=== PATIENT | female | born 1955 | race African-American/Black ===

== ENCOUNTER 2017-10-08 02:16 | Inpatient (IN) | payer OTHER ==
[2017-10-08] VITALS (9 sets, daily range): BP systolic 119–151; BP diastolic 57–73
[~2017-10-08] VITALS: Ht 165.1 cm; Wt 95.3 kg
[~2017-10-08 02:16] MED LIST: ACETAMINOPHEN325 M1 PO; ATORVASTATIN CA80 MG PO; DITROPAN XL5 MG PO; FUROSEMIDE40 MG PO; LEVAQUIN250 MG PO; LISINOPRIL-HCT1 EACH PO; MELOXICAM7.5 MG PO; POTASSIUM CHLO10 ME1 PO; POTASSIUM CHLO20 ME1 PO; POTASSIUM PO; TYLENOL PO; TYLENOL WITH C1 EACH PO; ULTRAM50 MG PO; VITAMIN B12 PO; VITAMIN D3 PO
[2017-10-08] MEDS ORDERED: CEFTRIAXONE SOD 1 GM VIAL IV ONE (02:30)
[2017-10-08] MEDS ORDERED: GENTAMICIN 80MG/NS 100 ML 100 ML IV ONE ×4 (02:30)
[2017-10-08] MEDS ORDERED: MORPHINE SULFATE 2 MG/ML SYR IV STA (02:32)
[2017-10-08] MEDS ORDERED: ONDANSETRON HCL INJ 2 MG/ML VIAL IV STA (02:32)
[2017-10-08] MEDS ORDERED: GENTAMICIN SULFATE 40 MG/ML 2 ML VIAL ONE (02:35)
[2017-10-08] MEDS ORDERED: SODIUM CHLORIDE 0.9% 250ML 250 ML ONE (02:36)
[2017-10-08] MEDS ORDERED: SODIUM CHLORIDE 0.9% 50ML 50 ML ONE (02:36)
[2017-10-08] MEDS ORDERED: MORPHINE SULFATE 2 MG/ML SYR ONE (02:39)
[2017-10-08] MEDS ORDERED: ONDANSETRON HCL INJ 2 MG/ML VIAL ONE ×2 (02:39→13:33)
[2017-10-08 02:44] LABS: BASOPHILS % 0.2 % (0.0-1.0); BILIRUBIN,URINE NEGATIVE (NEGATIVE); EOSINOPHILS % 0.1 % (0.0-6.0); HEMATOCRIT 42.6 % (34.2-44.1); HEMOGLOBIN 14.2 g/dL (12.0-16.0); KETONES,URINE NEGATIVE (NEGATIVE); LEUKOCYTE ESTERASE ,URINE 2+ (NEGATIVE); LYMPHOCYTES # (AUTO) 1.9 (1.0-3.2); LYMPHOCYTES % 9.1 % (18.0-39.1); MEAN CORPUSCULAR HEMOGLOBIN 30.7 pg (28-32); MEAN CORPUSCULAR HGB CONC 33.3 g/dL (31-35); MONOCYTES # (AUTO) 1.5 (0.2-0.8); MONOCYTES % 7.3 % (4.4-11.3); NEUTROPHILS # (AUTO) 17.3 (2.1-6.9); PLATELET COUNT 247 x10e3/uL (140-360); RED BLOOD COUNT 4.63 x10e6/uL (3.6-5.1); RED CELL DISTRIBUTION WIDTH 13.4 % (11.7-14.4); URINE UROBILINOGEN 0.2 mg/dL (0.2 - 1)
[2017-10-08 02:45] LABS: CLARITY,URINE CLOUDY (CLEAR); COLOR,URINE YELLOW (YELLOW); NITRITE,URINE POSITIVE (NEGATIVE); PROTEIN,URINE DIPSTICK 2+ (NEGATIVE)
[2017-10-08] MEDS ORDERED: ONDANSETRON HCL INJ 2 MG/ML VIAL IV PRN (02:45)
[2017-10-08] MEDS ORDERED: MORPHINE SULFATE 2 MG/ML SYR IV PRN (02:45)
[2017-10-08] MEDS ORDERED: SODIUM CHLORIDE 0.9% 500ML 500 ML ONE ×2 (02:45→14:32)
[2017-10-08] MEDS ORDERED: CEFTRIAXONE SOD 1 GM VIAL IV SCH (02:45)
[2017-10-08] MEDS: GENTAMICIN SULFATE 320 MG in SODIUM CHLORIDE 0.9% 100 ML IV SCH ×2 (02:51→11:06)
[2017-10-08 03:02] LABS: ALBUMIN 4.1 g/dL (3.5-5.0); ALBUMIN/GLOBULIN RATIO 1.1 (0.8-2.0); ANION GAP 16.4 mmol/L (8-16); CREATININE, SERUM 1.17 mg/dL (0.57-1.11); POTASSIUM 3.4 mmol/L (3.5-5.1)
[2017-10-08 03:05] LABS: WBC,URINE (MAN) >50 /HPF (0-5)
[2017-10-08 03:07] LABS: BACTERIA,URINE MODERATE /HPF; RBC,URINE 21-50 /HPF (0-5)
[2017-10-08 03:08] LABS: EPITHELIAL CELLS,URINE FEW /LPF
[2017-10-08 03:13] LABS: EOSINOPHILS % (MANUAL) 2 % (0-7); LYMPHOCYTES % (MANUAL) 13 % (19-48); MONOCYTES % (MANUAL) 5 % (3.4-9.0); NEUTROPHILS % (MANUAL) 80 % (40-74); PLATELET ESTIMATE ADEQUATE; PLATELET MORPHOLOGY COMMENT NORMAL; RBC MORPHOLOGY COMMENT NORMAL
[2017-10-08] MEDS ORDERED: ACETAMINOPHEN325 M1 PO (03:44)
[2017-10-08] MEDS ORDERED: LOSARTAN POTAS100 MG PO (03:44)
[2017-10-08] MEDS ORDERED: SIMETHICONE80 MG PO (03:44)
[2017-10-08] MEDS ORDERED: BELLADONNA/OPIUM 60 MG SUPP PR ONE (11:30)
[2017-10-08] MEDS ORDERED: IOPAMIDOL 610MG/1ML 300 MG/ML VIAL IV ONE (11:30)
[2017-10-08] MEDS ORDERED: MIDAZOLAM HCL 2 MG/2 ML VIAL ONE (13:21)
[2017-10-08] MEDS ORDERED: FENTANYL CITRATE/PF 100MCG/2 ML INJ ONE (13:21)
[2017-10-08] MEDS ORDERED: DEXAMETHASONE SOD PHOS INJ 4 MG/ML VIAL ONE (13:33)
[2017-10-08] MEDS ORDERED: PROPOFOL IV EMULSION 10 MG/ML 20 ML VIAL ONE (13:33)
[2017-10-08] MEDS ORDERED: SEVOFLURANE INHAL SOLN 250 ML PEN BTL ONE (13:33)
[2017-10-08] MEDS ORDERED: LIDOCAINE HCL 2% LOCAL INJ 5 ML SDV VIAL INJ ONE (13:33)
[2017-10-08] MEDS ORDERED: PHENYLEPHRINE HCL 1% 10 MG/ML VIAL ONE (13:33)
--- NOTE | 2017-10-08 14:02 | Operative Report ---
DATE OF PROCEDURE: October 08, 2017 PREOPERATIVE DIAGNOSES 1. Right hydronephrosis due to ureteropelvic junction obstruction. 2. Urinary tract infection. 3. Microscopic hematuria. POSTOPERATIVE DIAGNOSES 1. Right hydronephrosis due to ureteropelvic junction obstruction. 2. Urinary tract infection. 3. Microscopic hematuria. 4. Grade-2 cystocele. 5. Atrophic (senile) vaginitis. PROCEDURES PERFORMED 1. Cystourethroscopy with bilateral ureteral catheterization and retrograde ureteropyelography (separate procedure performed for the urinary tract infections and microscopic hematuria). 2. Interpretation of retrograde ureteropyelography. 3. Supervision of fluoroscopy. No radiologist present. 4. Cystourethroscopy with insertion of right indwelling ureteral stent (7 Latvian x 24 cm). 5. Pelvic examination under anesthesia. ANESTHESIA: General. COMPLICATIONS: None. CLINICAL SUMMARY: Please refer to consultation dictation from the same date. OPERATIVE PROCEDURE IN DETAIL: Informed consent was verified. Renetta Drew was properly identified, taken to the operating room, and placed on the cystoscopy table in the supine position. Anesthesia was uneventfully begun. The patient was then carefully and gently repositioned in the dorsal lithotomy position with all pressure points well padded. Her genitalia were prepared and draped in the usual sterile fashion. The 22.5-[place]vian cystourethroscope sheath with the obturator in place was atraumatically inserted into the patient's urethra, and the bladder was drained. Panendoscopy of the urinary bladder revealed signs of acute and active cystitis. Purulent urine was obtained upon placement of the cystoscope sheath, and this was sent for culture and sensitivity as a separate specimen. An open-ended ureteral catheter was used to cannulate the left ureter, and retrograde ureteropyelogram was performed. It was then inserted in the right ureter, and retrograde ureteropyelogram was performed. The open-ended catheter was then negotiated with the aid of a guidewire up into the right renal pelvis. A hydronephrotic drip of alethea thick pus was obtained. This pus was sent for culture and sensitivity and labeled as right kidney urine culture. With cystoscopic and fluoroscopic guidance, a 7-Latvian x 24-cm indwelling ureteral stent was then placed. It was coiled in the patient's kidney as well as in the patient's bladder. The retaining suture was cut short. The patient's bladder was then drained with a 20-Latvian Burks catheter. Pelvic examination under anesthesia revealed atrophic vaginitis with a grade-2 cystocele. No rectocele was noted. There were no abnormal palpable pelvic masses that could be appreciated. The cystocele was in the cephalad portion of the vagina, and there was good support of the urethra and bladder neck. The patient was then uneventfully reversed from anesthesia and taken to the recovery room in stable condition. There were no complications to the procedure. She tolerated the procedure well. Plans will be to continue her broad-spectrum antibiotic and eagerly await the culture and sensitivities so that we may discharge the patient on culture-specific antibiotics for several weeks prior to returning her to the operating room for a right ureteroscopy with management of her stone and removal of her stent. Job#: [id number]
--- NOTE | 2017-10-08 14:20 | Consultation ---
DATE OF CONSULTATION: October 08, 2017 UROLOGY CONSULTATION REASON FOR CONSULTATION: Hydronephrosis. HISTORY OF PRESENT ILLNESS: Renetta Drew is a 61-year-old woman with a known long-standing right ureteropelvic junction obstruction. The patient has been monitored and followed closely. Her last renal scan demonstrated a post-Lasix half-life in the normal range at 8 minutes on the right-hand side. Of her total kidney function, 41% is attributed to the right kidney and 59% is attributed to the left kidney. The patient has been offered the option of a pyeloplasty. However, without obstructing parameters on renal scan, the patient elected to proceed with continued followup as we have been doing. The patient has not had significant problems with complicated urinary tract infections. However, yesterday she had a fever [facility] where she had a white blood cell count of 22,000 and was found to have severe hydronephrosis on the right-hand side and a small stone in the right kidney measuring 3 mm. The patient also had malaise. The patient wanted to save the money of the transfer; so, she left against medical advice, brought her data with her to the hospital here, reported to the emergency room, where she was evaluated and admitted. The patient was given a 320-mg dose of IV gentamicin once and was placed on Rocephin. A catheterized urine culture was obtained at my request. PAST MEDICAL HISTORY/PAST SURGICAL HISTORY/SOCIAL HISTORY AND FAMILY HISTORY: Please refer to my voluminous office chart as well as prior hospital charts here. CURRENT MEDICATIONS: Please refer to the MAR. ALLERGIES: PENICILLIN. REVIEW OF SYSTEMS: As consistent with above history of present illness and past medical history, is otherwise negative for all other systems. PHYSICAL EXAMINATION GENERAL: A very pleasant 61-year-old woman lying in bed in no apparent distress. VITAL SIGNS: Her temperature maximum is 99.9, and her vital signs have been stable. ABDOMEN: Soft, nondistended. She has right-sided costovertebral angle tenderness. Kidneys are not palpable, without hepatosplenomegaly. No obvious evidence of hernia. The patient is obese. For the remaining physical examination and systems, please refer to the admission history and physical on the chart as well as the emergency room T Sheet. LABORATORY STUDIES: White blood cell count is 20,900, hemoglobin 14.2, platelets 247,000. Patient's creatinine is 1.17, which is patient's baseline. Her potassium is slightly low at 3.4. Her calcium is normal at 10. Urinalysis on catheterized urine was significant for nitrite positive urine with 4+ blood, 21-50 RBCs, greater than [address] with moderate bacteria. CT scan of the abdomen and pelvis from the outside had the findings mentioned above. ASSESSMENT 1. Known right ureteropelvic junction obstruction. 2. Urinary tract infection. 3. Atrophic right kidney. 4. Right nephrolithiasis. 5. Right renal colic. 6. Obesity. 7. Leukocytosis. 8. Right pyelonephritis. 9. Chronic renal insufficiency that is stable. 10. Mild hypokalemia. 11. Microscopic hematuria. PLAN: The patient has impending urosepsis. I will post the patient immediately to the operating room for an urgent cystoscopy, retrograde pyelograms and placement of a right stent. Once the patient has been cooled off from her infection, we will plan on returning her to the operating room to remove her stent, evaluate for stone, and hopefully render her stent-free and stone-free. The patient is aware of the risks, benefits and alternatives to stenting. She also knows about percutaneous nephrostomy as an option. Thank you very much for involving us in the care of your patient. We will be happy to follow her along with you as well as an outpatient. Job#: [id number]
[2017-10-08] MEDS: AZITHROMYCIN 500MG/NS 250 ML 250 ML IV SCH (14:45)
[2017-10-08] MEDS: PHENAZOPYRIDINE HCL 100 MG TAB PO SCH (17:55)
[2017-10-09] VITALS (7 sets, daily range): BP systolic 106–126; BP diastolic 55–61
[2017-10-09] MEDS: CEFTRIAXONE SOD 1 GM VIAL IV SCH (02:13)
[2017-10-09 07:18] LABS: BASOPHILS % 0.1 % (0.0-1.0); EOSINOPHILS % 0.1 % (0.0-6.0); HEMATOCRIT 37.1 % (34.2-44.1); HEMOGLOBIN 12.2 g/dL (12.0-16.0); LYMPHOCYTES % 12.4 % (18.0-39.1); MEAN CORPUSCULAR HEMOGLOBIN 30.6 pg (28-32); MEAN CORPUSCULAR HGB CONC 32.9 g/dL (31-35); MONOCYTES # (AUTO) 0.9 (0.2-0.8); MONOCYTES % 5.7 % (4.4-11.3); NEUTROPHILS # (AUTO) 13.1 (2.1-6.9); NEUTROPHILS % 81.3 % (38.7-80.0); PLATELET COUNT 193 x10e3/uL (140-360); RED BLOOD COUNT 3.99 x10e6/uL (3.6-5.1); RED CELL DISTRIBUTION WIDTH 13.3 % (11.7-14.4)
[2017-10-09 07:39] LABS: ALANINE AMINOTRANSFERASE 11 IU/L (0-55); ALBUMIN 2.9 g/dL (3.5-5.0); ALBUMIN/GLOBULIN RATIO 0.9 (0.8-2.0); ALKALINE PHOSPHATASE 82 IU/L (40-150); ANION GAP 11.2 mmol/L (8-16); BLOOD UREA NITROGEN 18 mg/dL (7-26); BUN/CREATININE RATIO 21 (6-25); CALCIUM 8.8 mg/dL (8.4-10.2); CARBON DIOXIDE 26 mmol/L (22-29); CHLORIDE 108 mmol/L (98-107); CREATININE, SERUM 0.86 mg/dL (0.57-1.11); EST GLOMERULAR FILTRATION RATE > 60 ML/MIN (60-); GLUCOSE 122 mg/dL (74-118); POTASSIUM 4.2 mmol/L (3.5-5.1); SODIUM 141 mmol/L (136-145)
[2017-10-09] MEDS: OXYBUTYNIN CHLORIDE 5 MG TAB PO SCH ×2 (09:56→18:06)
[2017-10-09] MEDS: PHENAZOPYRIDINE HCL 100 MG TAB PO SCH ×3 (09:56→18:06)
[2017-10-09] MEDS: AZITHROMYCIN 500MG/NS 250 ML 250 ML IV SCH (14:13)
[2017-10-10] VITALS: BP 111/56
[2017-10-10] MEDS: CEFTRIAXONE SOD 1 GM VIAL IV SCH (03:00)
[2017-10-10 04:00] VITALS: BP 106/56
[2017-10-10 08:00] VITALS: BP 121/64
[2017-10-10] MEDS: OXYBUTYNIN CHLORIDE 5 MG TAB PO SCH (09:16)
[2017-10-10] MEDS: PHENAZOPYRIDINE HCL 100 MG TAB PO SCH ×2 (09:16→13:33)
[2017-10-10 12:00] VITALS: BP 157/63
[2017-10-10] MEDS ORDERED: LEVAQUIN500 MG PO (13:04)
[2017-10-10] MEDS: AZITHROMYCIN 500MG/NS 250 ML 250 ML IV SCH (13:33)
== END 2017-10-10 14:33 | disposition home or self-care (01) | DRG 872 ==
LOC: ER 02:16 → ERHOLD 02:57 → MED/SURG3 02:58
PROC: BT1F1ZZ Fluoroscopy of Left Kidney, Ureter and Bladder using Low Osmolar Contrast (ICD-10-PCS; 2017-10-08)
PROC: BT1D1ZZ Fluoroscopy of Right Kidney, Ureter and Bladder using Low Osmolar Contrast (ICD-10-PCS; 2017-10-08)
PROC: 0T768DZ Dilation of Right Ureter with Intraluminal Device, Via Natural or Artificial Opening Endoscopic (ICD-10-PCS; principal; 2017-10-08 10:22)
DX: A41.9 Sepsis, unspecified organism (principal); N13.6 Pyonephrosis; N39.0 Urinary tract infection, site not specified; E66.9 Obesity, unspecified; I12.9 Hypertensive chronic kidney disease with stage 1 through stage 4 chronic kidney disease, or unspecified chronic kidney disease; N81.10 Cystocele, unspecified; N95.2 Postmenopausal atrophic vaginitis; N18.9 Chronic kidney disease, unspecified; N26.1 Atrophy of kidney (terminal); Z68.34 Body mass index [BMI] 34.0-34.9, adult; E87.6 Hypokalemia; R10.84 Generalized abdominal pain
CPT/HCPCS: 36415; 74420; 80053; 81001; 85025; 87040; 87086; 87186; 96367; 99284; C2617; J0456; J0696; J1100; J1580; J2001; J2250; J2270; J2370; J2405; J7040; J7050

== ENCOUNTER → 2017-11-19 | Day surgery (SDC) | payer OTHER ==
[2017-11-17 12:18] LABS: ANION GAP 11.3 mmol/L (8-16); CREATININE, SERUM 1.15 mg/dL (0.57-1.11); POTASSIUM 3.3 mmol/L (3.5-5.1)
[~2017-11-19] MED LIST changes: +BELLADONNA/OPIUM 60 MG SUPP PR ONE; +DEXAMETHASONE SOD PHOS INJ 4 MG/ML VIAL ONE; +FENTANYL CITRATE/PF 100MCG/2 ML INJ ONE; +GENTAMICIN 80MG/NS 100 ML 200 ML IV ONE; +HYDROCHLOROTHIA25 MG PO; +IOPAMIDOL 300MG/ML 50ML INFUS..BTL IV ONE; +LEVAQUIN500 MG PO; +LIDOCAINE HCL 2% LOCAL INJ 5 ML SDV VIAL INJ ONE; +LOSARTAN POTAS100 MG PO; +MIDAZOLAM HCL 2 MG/2 ML VIAL ONE; +ONDANSETRON HCL INJ 2 MG/ML VIAL ONE; +PROPOFOL IV EMULSION 10 MG/ML 20 ML VIAL ONE; +SEVOFLURANE INHAL SOLN 250 ML PEN BTL ONE; +SIMETHICONE80 MG PO
--- OUTSIDE RECORDS SUMMARY | 2017-11-19 05:17 | XMS REPORT | Continuity of Care Document ---
Author Author [facility] Organization [facility] Address [address] [place] [address] Phone Unavailable Care Team Providers Care Consulting Technical Director Name Role Phone NONSTAFF PCP Unavailable Insurance Providers Guarantor David Drew Address [address] [place] [address] Email [email or web address] Payer [employer] [place] [employer] Policy Number [id number] Subscriber's Name RajendraDavid Relationship 21 Unknown Group Name UNEMPLOYED Effective Date 17 Advance Directives Directive Response Recorded Date/Time Does the patient have an advance directive? No 10/08/17 4:46am If yes, is advance directive on file with [facility]? No 10/08/17 4:46am If not on file with [facility] will patient provide a copy? No 10/08/17 4:46am Do you have a Directive to Physician? No 10/08/17 2:51am Do you have a Medical Power of Structural Analyst? No 10/08/17 2:51am Do you have an out of hospital Do Not Resuscitate Order? No 10/08/17 2:51am Do you have any special needs we should be aware of? No 10/08/17 2:51am Do you have a support person here with you today? Yes 10/08/17 2:51am Did patient receive Notice of Privacy Practices? Yes 10/08/17 2:51am Did patient receive patient rights and responsibilities? Yes 10/08/17 2:51am Problems Medical Problem Onset Date Status Hydronephrosis Unknown Pyelonephritis Unknown UTI (urinary tract infection) 04/18/2016 Acute Ureteral obstruction 04/18/2016 Acute Medications Current Home Medications Medication Dose Units Route Directions Days Qty Instructions Start Date Acetaminophen 325 Mg Tablet 325 Mg Oral Every 6 Hours as needed for Pain And Temperature 7 Days Atorvastatin Calcium 80 Mg Tablet 80 Mg Oral Daily Furosemide 40 Mg Tablet 40 Mg Oral Daily as needed for Prn 30 Tab Levofloxacin (Levaquin) 500 Mg Tablet 500 Mg Oral Daily Lisinopril/Hydrochlorothiazide (Lisinopril-Hctz 20-12.5 Mg Tab) 1 Each Tablet Oral Daily Losartan Potassium 100 Mg Tablet 100 Mg Oral Daily Potassium Chloride 10 Meq Tab.er.prt 10 Meq Oral As Needed Simethicone 80 Mg Chew 80 Mg Oral Daily 30 Tab Tramadol Hcl (Ultram) 50 Mg Tablet 50 Mg Oral As Needed Past Home Medications Medication Directions Ordered Status Acetaminophen 325 Mg Tablet, 500 Mg Oral As Needed as needed for Pain Discontinued Acetaminophen With Codeine (Tylenol With Codeine #3 Tablet) 1 Each Tablet, 300 Mg Oral Every 4 Hours as needed for Pain Discontinued Levofloxacin (Levaquin) 250 Mg Tablet, 250 Mg Oral Daily Discontinued Meloxicam 7.5 Mg Tablet, 7.5 Mg Oral Daily Discontinued Oxybutynin Chloride (Ditropan Xl) 5 Mg Tab.er.24, 5 Mg Oral Three Times A Day Discontinued Potassium Chloride 20 Meq Tab.er.prt, 1 Meq Oral as needed for Daily Discontinued Vitamin B12 , Oral Daily Discontinued Vitamin D3 , Oral Daily Discontinued Family History Relationship Condition Age at Onset Recorded Date/Time 31 Mother Family history of acute myocardial infarction Not Recorded 2015 9:53am Social History Social History Problem Response Recorded Date/Time Onset Date Status Hx Psychiatric Problems No 10/08/2017 4:46am Not Applicable Not Applicable Hx Eating Disorder No 10/08/2017 4:46am Not Applicable Not Applicable Hx Substance Use Disorder No 10/08/2017 4:46am Not Applicable Not Applicable Hx Depression No 10/08/2017 4:46am Not Applicable Not Applicable Hx Alcohol Use No 10/08/2017 4:46am Not Applicable Not Applicable Hx Substance Use Treatment No 10/08/2017 4:46am Not Applicable Not Applicable Hx Physical Abuse No 10/08/2017 4:46am Not Applicable Not Applicable Smoking Status Start Date Stop Date Never Smoker Hospital Discharge Instructions No hospital discharge instruction information available. Plan of Care Discharge Date 10/10/17 2:33pm Disposition HOME, SELF-CARE Instructions/Education Provided Pyelonephritis Prescriptions See Medication Section Additional Instructions/Education NO HEAVY LIFTING OVER 10LBS, ACTIVITY TOLERATE. SCHAFFER CATHETER WITH LEG BAG AND OVERNIGHT BAG. FOLLOW UP WITH YOUR PRIMARY DOCTOR IN 1WK AND FOLLOW UP WITH DR Ulises MYERS IN 1WK [phone] Functional Status Query Response Date Recorded Assistive Devices None October 08, 2017 5:00am Ambulation Ability Independent October 08, 2017 5:00am Toileting Ability Independent October 10, 2017 9:00am Allergies, Adverse Reactions, Alerts Allergen Type Severity Reaction Status Last Updated Penicillin Allergy Unknown Active 01/31/16 Immunizations No immunization information available. Vital Signs Acute Vital Signs Vital Response Date/Time Temperature (Fahrenheit) 97.4 degrees F (97.6 - 99.5) 10/10/2017 12:00pm Pulse Pulse Rate (adult) 79 bpm (60 - 90) 10/10/2017 12:00pm Respiratory Rate 20 bpm (12 - 24) 10/10/2017 12:00pm Blood Pressure 157/63 mm Hg 10/10/2017 12:00pm Height 5 ft 5 in 10/08/2017 2:25am Weight 210 lb 10/08/2017 4:46am Body Mass Index 34.9 kg/m^2 10/08/2017 4:46am Results Laboratory Results Test Name Result Units Flags Reference Collection Date/Time Result Date/ Time Comments White Blood Count 16.15 x10e3/uL H 4.8-10.8 10/09/2017 6:32am 2017 7:28am Red Blood Count 3.99 x10e6/uL 3.6-5.1 10/09/2017 6:32am 10/09/2017 7: 28am Hemoglobin 12.2 g/dL 12.0-16.0 10/09/2017 6:3210/09/2017 7:28am Hematocrit 37.1 % 34.2-44.1 10/09/2017 6:32am 10/09/2017 7:28am Mean Corpuscular Volume 93.0 fL 81-99 10/09/2017 6:32am 10/09/2017 7: 28am Mean Corpuscular Hemoglobin 30.6 pg 28-32 10/09/2017 6:32am 10/09/2017 7:28am Mean Corpuscular Hemoglobin Concent 32.9 g/dL 31-35 10/09/2017 6:3210/09/2017 7:28am Red Cell Distribution Width 13.3 % 11.7-14.4 10/09/2017 6:322017 7:28am Platelet Count 193 x10e3/uL 140-360 10/09/2017 6:32am 10/09/2017 7: 28am Neutrophils (%) (Auto) 81.3 % H 38.7-80.0 10/09/2017 6:32am 10/09/2017 7 :28am Lymphocytes (%) (Auto) 12.4 % L 18.0-39.1 10/09/2017 6:32am 10/09/2017 7 :28am Monocytes (%) (Auto) 5.7 % 4.4-11.3 10/09/2017 6:32am 10/09/2017 7: 28am Eosinophils (%) (Auto) 0.1 % 0.0-6.0 10/09/2017 6:32am 10/09/2017 7: 28am Basophils (%) (Auto) 0.1 % 0.0-1.0 10/09/2017 6:32am 10/09/2017 7:28am IM GRANULOCYTES % 0.4 % 0.0-1.0 10/09/2017 6:32am 10/09/2017 7:28am Neutrophils # (Auto) 13.1 H 2.1-6.9 10/09/2017 6:32am 10/09/2017 7: 28am Lymphocytes # (Auto) 2.0 1.0-3.2 10/09/2017 6:32am 10/09/2017 7:28am Monocytes # (Auto) 0.9 H 0.2-0.8 10/09/2017 6:32am 10/09/2017 7:28am Eosinophils # (Auto) 0.0 0.0-0.4 10/09/2017 6:32am 10/09/2017 7:28am Basophils # (Auto) 0.0 0.0-0.1 10/09/2017 6:32am 10/09/2017 7:28am Absolute Immature Granulocyte (auto 0.07 x10e3/uL 0-0.1 10/09/2017 6: 32am 10/09/2017 7:28am Differential Total Cells Counted 100 10/08/2017 2:10/08/2017 3 :13am Neutrophils % (Manual) 80 % H 40-74 10/08/2017 2:10/08/2017 3:13am Lymphocytes % (Manual) 13 % L 19-48 10/08/2017 2:am 10/08/2017 3:13am Monocytes % (Manual) 5 % 3.4-9.0 10/08/2017 2:10/08/2017 3:13am Eosinophils % (Manual) 2 % 0-7 10/08/2017 2:10/08/2017 3:13am Platelet Estimate ADEQUATE 10/08/2017 2:10/08/2017 3:13am Platelet Morphology Comment NORMAL 10/08/2017 2:am 10/08/2017 3: 13am Red Cell Morphology Comment NORMAL 10/08/2017 2:am 10/08/2017 3: 13am Urine Color YELLOW YELLOW 10/08/2017 2:10/08/2017 2:45am Urine Clarity CLOUDY H CLEAR 10/08/2017 2:10/08/2017 2:45am Urine Specific [place] 1.020 1.010-1.025 10/08/2017 2:2017 2:45am Urine pH 6 5 - 7 10/08/2017 2:10/08/2017 2:45am Urine Leukocyte Esterase 2+ H NEGATIVE 10/08/2017 2:10/08/2017 2: 45am Urine Nitrite POSITIVE H NEGATIVE 10/08/2017 2:10/08/2017 2:45am Urine Protein 2+ H NEGATIVE 10/08/2017 2:10/08/2017 2:45am Urine Glucose (UA) NEGATIVE NEGATIVE 10/08/2017 2:10/08/2017 2: 45am Urine Ketones NEGATIVE NEGATIVE 10/08/2017 2:10/08/2017 2:45am Urine Urobilinogen 0.2 mg/dL 0.2 - 1 10/08/2017 2:10/08/2017 2: 45am Urine Bilirubin NEGATIVE NEGATIVE 10/08/2017 2:10/08/2017 2: 45am Urine Blood 4+ H NEGATIVE 10/08/2017 2:10/08/2017 2:45am Urine WBC >50 /HPF H 0-5 10/08/2017 2:10/08/2017 3:08am Urine RBC 21-50 /HPF H 0-5 10/08/2017 2:10/08/2017 3:08am Urine Bacteria MODERATE /HPF H NONE 10/08/2017 2:10/08/2017 3:08am Urine Epithelial Cells FEW /LPF NONE 10/08/2017 2:10/08/2017 3: 08am Sodium Level 141 mmol/L 136-145 10/09/2017 6:32am 10/09/2017 7:59am Potassium Level 4.2 mmol/L # 3.5-5.1 10/09/2017 6:32am 10/09/2017 7:59am Chloride Level 108 mmol/L H 98-107 10/09/2017 6:32am 10/09/2017 7:59am Carbon Dioxide Level 26 mmol/L 22-10/09/2017 6:32am 10/09/2017 7: 59am Anion Gap 11.2 mmol/L 8-16 10/09/2017 6:32am 10/09/2017 7:59am Blood Urea Nitrogen 18 mg/dL 7-10/09/2017 6:32am 10/09/2017 7:59am Creatinine 0.86 mg/dL 0.57-1.11 10/09/2017 6:32am 10/09/2017 7:59am BUN/Creatinine Ratio 21 6-10/09/2017 6:32am 10/09/2017 7:59am Estimat Glomerular Filtration Rate > 60 ML/MIN 60- 10/09/2017 6:32am 7:59am Ranges were taken from the National Kidney Disease Education Program and the National Kidney Foundation literature. Reference ranges: 60 or greater: Normal 16-59 (for 3 consecutive months): Chronic kidney disease 15 or less: Kidney failure Glucose Level 122 mg/dL H 74-118 10/09/2017 6:32am 10/09/2017 7:59am Calcium Level 8.8 mg/dL 8.4-10.2 10/09/2017 6:32am 10/09/2017 7:59am Total Bilirubin < 0.3 mg/dL 0.2-1.2 10/09/2017 6:32am 10/09/2017 7: 59am Aspartate Amino Transf (AST/SGOT) 10 IU/L 5-34 10/09/2017 6:32am 2017 7:59am Alanine Aminotransferase (ALT/SGPT) 11 IU/L 0-55 10/09/2017 6:32am 08/2017 7:59am Total Protein 6.0 g/dL # L 6.5-8.1 10/09/2017 6:32am 10/09/2017 7:59am Albumin 2.9 g/dL L 3.5-5.0 10/09/2017 6:32am 10/09/2017 7:59am Globulin 3.1 g/dL 2.3-3.5 10/09/2017 6:32am 10/09/2017 7:59am Albumin/Globulin Ratio 0.9 0.8-2.0 10/09/2017 6:32am 10/09/2017 7: 59am Alkaline Phosphatase 82 IU/L 40-150 10/09/2017 6:32am 10/09/2017 7: 59am Microbiology Results Procedure Source Organism/Result Collection Date/Time Result Date/Time Result Status Urine Culture Urine,Catheterized ESCHERICHIA COLI 10/08/2017 2:27am 2017 6:56am Final Blood Culture Blood NO GROWTH AFTER 48 HOURS 8:42am 10/10/2017 8:57am Preliminary Urine Culture Urine,Kidney ESCHERICHIA COLI 10/08/2017 12:53pm 10/10/2017 7:12am Final Procedures Procedure Status Date Provider(s) Cystoscopy with retrograde pyelography Completed 10/08/17 KATHLEEN MYERS MD Encounters Encounter Location Arrival/Admit Date Discharge/Depart Date Attending Provider [facility]mitted [facility] 10/08/17 2:57am WANDER WADSWORTH MD Registered Clinic [facility] 03/25/17 2:05pm KATHLEEN MYERS MD
--- NOTE | 2017-11-19 11:01 | Diagnostic Imaging Report ---
PROCEDURE:X-RAY ABDOMEN - KUB COMPARISON:KUB 05/10/2016 INDICATIONS:PRE-OP STONE FINDINGS: Right ureteral stent in place. Stool and bowel gas overlie the right renal silhouette. Previous calcifications projecting over the right kidney on 05/10/2016 are not well visualized. There are no calcifications projected over the expected course of the ureters or bladder. There is a non-obstructed bowel-gas pattern. There are no acute osseous abnormalities. CONCLUSION: Previous right renal calcifications noted on KUB 05/10/2016 are not well visualized. Of note, exam is partially limited by stool overlying the right renal silhouette. Dictated by: Norm Alonzo M.D. on 11/19/2017 at 11:02 Electronically approved by: Norm Alonzo M.D. on 11/19/2017 at 11:02
--- NOTE | 2017-12-16 03:12 | Operative Report ---
DATE OF PROCEDURE: November 19, 2017 PREOPERATIVE DIAGNOSES 1. Right nephrolithiasis. 2. Right indwelling ureteral stents. POSTOPERATIVE DIAGNOSES 1. Nephrolithiasis. 2. Foreign body (right indwelling ureteral stent.). 3. Cystocele. 4. Rectocele. 5. Grade-2 uterine prolapse. 6. Atrophic (senile) vaginitis. OPERATIONS PERFORMED 1. Cystourethroscopy with complicated removal of right indwelling ureteral stent (separately performed with separate scope for the diagnosis of stent). 2. Right ureteropyelography with stone manipulation and extraction (separately performed for nephrolithiasis done with a separate scope). 3. Radiological services for supervision and interpretation of ureteroscopy. 4. Interpretation of retrograde ureteropyelography. 5. Supervision of fluoroscopy. No radiologist present. 6. Pelvic examination under anesthesia. ANESTHESIA: General. COMPLICATIONS: None. CLINICAL SUMMARY: Renetta Drew is a 62-year-old woman with a right ureteropelvic junction obstruction. She has chronic right hydronephrosis. The patient developed right nephrolithiasis with pyelonephritis. Underwent ureteral stenting. She was brought to the operating room today for the above procedures. She is aware of the risks of bleeding, infection, injury to adjacent structures, need for additional procedure, and elected to proceed. OPERATIVE PROCEDURE IN DETAIL: Informed consent was verified. Renetta Drew was properly identified, taken to operating room, placed on the cystoscopy table in supine position. Anesthesia was uneventfully begun. The patient then carefully and gently repositioned in the dorsal lithotomy position with all pressure points well padded. Her genitalia were prepared and draped in usual sterile fashion. A 22.5-Citizen [place] cystoscope sheath with obturator in place was atraumatically inserted in patient's urethra and bladder was drained. Panendoscopy of the bladder revealed no suspicious mucosal lesions. No tumors, no stones, and no diverticula. There was a stent emerging from the right ureteral orifice and it was significantly encrusted. A guidewire was then placed alongside the stent and guided below the patient's kidney. The stent was then grasped completely, removed, then discarded. Flexible urethroscope was then brought up over the guidewire and guided to level of patient's kidney. The ureteropelvic junction appeared somewhat narrowed, but this area proved to allow the acceptable passage of urine at an acceptable rate. Alvaro plaques were present throughout the papilla of this dilated collecting system. We identified the stone. The stone was grasped with Nitinol tipless basket and extracted atraumatically, carefully examining the ureter, which was otherwise unremarkable. Interpretation of retrograde ureteropyelography: Contrast was instilled in retrograde fashion via the ureteroscope. There was chronic-appearing hydroureteronephrosis with an unremarkable ureter. This was consistent with a partial ureteropelvic junction obstruction, which has been stable in this patient for quite some time. There was no extravasation. The patient's bladder was then drained. Cystoscope was withdrawn. Pelvic examination under anesthesia revealed a cystocele, no rectocele, grade-2 uterine prolapse. There was atrophic (senile) vaginitis. No abnormal palpable pelvic masses could be appreciated. There were no obvious mucosal lesions. The patient was then uneventfully reversed from anesthesia and taken to recovery room in stable condition. Explicit postoperative instructions were given. Will follow the patient up in the office. Long-term followup will include the incorporation of nuclear medicine renal scan, as well as ongoing urological followup. Job#: [id number] CQ
== END | disposition home or self-care (01) ==
LOC: OR 05:15
PROVIDERS: ATTEND Urology
DX: N20.0 Calculus of kidney (principal); N13.30 Unspecified hydronephrosis; Z46.6 Encounter for fitting and adjustment of urinary device; N28.89 Other specified disorders of kidney and ureter; N81.2 Incomplete uterovaginal prolapse; N95.2 Postmenopausal atrophic vaginitis; I10 Essential (primary) hypertension; Z01.810 Encounter for preprocedural cardiovascular examination; Z01.812 Encounter for preprocedural laboratory examination; Z88.1 Allergy status to other antibiotic agents; Z88.0 Allergy status to penicillin
CPT/HCPCS: 36415; 52352; 74018; 74420; 80048; 87086; 88300; 93005; J1100; J1580; J2001; J2250; J2405; Q9967

== ENCOUNTER → 2017-12-31 | Outpatient (CLI) | payer OTHER ==
[~2017-12-31] MED LIST changes: -BELLADONNA/OPIUM 60 MG SUPP PR ONE; -DEXAMETHASONE SOD PHOS INJ 4 MG/ML VIAL ONE; -FENTANYL CITRATE/PF 100MCG/2 ML INJ ONE; +FUROSEMIDE INJ 10 MG/ML 4 ML VIAL ONE; -GENTAMICIN 80MG/NS 100 ML 200 ML IV ONE; -IOPAMIDOL 300MG/ML 50ML INFUS..BTL IV ONE; -LIDOCAINE HCL 2% LOCAL INJ 5 ML SDV VIAL INJ ONE; -MIDAZOLAM HCL 2 MG/2 ML VIAL ONE; -ONDANSETRON HCL INJ 2 MG/ML VIAL ONE; -PROPOFOL IV EMULSION 10 MG/ML 20 ML VIAL ONE; -SEVOFLURANE INHAL SOLN 250 ML PEN BTL ONE
--- NOTE | 2017-12-31 22:59 | Diagnostic Imaging Report ---
Renal Scan with Lasix Washout Clinical information: Hydronephrosis; chronic kidney disease. History of renal stones. Has had multiple stents since 2012. Most recent stent on the right removed 11/19/2017. Comparison: Most recent prior renal scan of 03/25/2017 Technique: Following intravenous administration of 10 mCi of Tc-99m MAG3, dynamic images of the kidneys in the posterior projection were obtained through 40 minutes. Lasix 40 mg was administered intravenously at 10 minutes post injection of the tracer. Report: Left kidney: Perfusion of the left kidney is prompt. 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 The appearance of the kidney is unchanged compared to the prior study of 03/25/2017. Extraction of tracer from the blood pool is normal. Clearance of tracer from the renal parenchyma is prompt. An upper pole calyx and the renal pelvis are mildly dilated with slightly greater pooling of tracer in the pelvicalyceal system that on the prior exam. Some net drainage of tracer from the pelvicalyceal system is seen prior to administration of Lasix. Washout of tracer from the pelvicalyceal system following administration of Lasix is rapid with a T-1/2 of 3-4 minutes (normal less than 15 minutes). No significant stasis of tracer is seen within the left ureter. Right kidney: Perfusion to the right kidney is prompt. The right kidney has a reniform shape but is reduced in size. The appearance of the kidney is unchanged compared to the prior study. Extraction of tracer by the remaining renal parenchyma is normal. Clearance of tracer from the renal parenchyma is prompt. The pelvicalyceal system is mildly dilated. Increased pooling of tracer is seen in the pelvicalyceal system, predominantly in the renal pelvis. No net drainage of tracer from the pelvicalyceal system is seen prior to administration of Lasix. Washout of tracer from the pelvicalyceal system following administration of Lasix is rapid with a T-1/2 of 5 minutes (normal less than 15 minutes). No significant stasis of tracer is seen within the right ureter. Differential renal function: The left kidney contributes 70% of total renal function and the right kidney contributes 30% (normal 43-57%), previous left 59% and right 41%. Impression: 1. The left kidney is elongated and has mild dilation of an upper pole calyx and the renal pelvis. The pelvicalyceal system drains adequately. No physiologically significant obstruction of the renal collecting system is present. The appearance of the kidney is unchanged compared to the most recent prior renal scan and the drainage pattern remains essentially the same. 2. The right kidney is overall reduced in size although it has smooth contours. Mild hydronephrosis is present. No physiologically significant obstruction of the renal collecting system is present. The appearance of the kidney is unchanged compared to the most recent prior renal scan and the washout pattern is slightly improved. 3. The differential renal function has widened compared to the most recent prior renal scan but there has been no change in the appearance of drainage/washout pattern in either kidney. I can have the technologist redraw regions of interest for both studies and recalculate the differential renal functions. An addendum to this report will be submitted when that is completed. Signed by: Dr. Ayesha Denis M.D. on 12/31/2017 10:55 PM
== END ==
LOC: NM 12:26
PROVIDERS: ATTEND Urology
CPT/HCPCS: 78708; A9562; J1940